=== PATIENT | female | born 1995 | race Two or more races ===

== ENCOUNTER 2020-04-22 16:14 | Emergency (ER) | payer OTHER ==
[~2020-04-22] VITALS: Ht 165.1 cm; Wt 90.9 kg
[2020-04-22 16:25] VITALS: BP 105/51
== END 2020-04-22 18:46 | disposition home or self-care (01) ==
LOC: ER 16:14
DX: S93.409A Sprain of unspecified ligament of unspecified ankle, initial encounter (principal); Z88.5 Allergy status to narcotic agent; Z59.0 Homelessness; X58.XXXA Exposure to other specified factors, initial encounter; Y93.89 Activity, other specified; Y92.89 Other specified places as the place of occurrence of the external cause; Y99.8 Other external cause status
CPT/HCPCS: 73610; 99283

== ENCOUNTER 2020-09-18 11:31 | Emergency (ER) | payer OTHER ==
[~2020-09-18] VITALS: Ht 165.1 cm; Wt 96.0 kg
[2020-09-18 11:57] VITALS: BP 121/78
== END 2020-09-18 12:57 | disposition home or self-care (01) ==
LOC: ER 11:32
DX: M25.531 Pain in right wrist (principal); Z88.8 Allergy status to other drugs, medicaments and biological substances; Z56.0 Unemployment, unspecified
CPT/HCPCS: 29125; 73110; 99283

== ENCOUNTER 2022-03-10 13:12 | Emergency (ER) | payer OTHER ==
[~2022-03-10] VITALS: Ht 165.1 cm; Wt 102.0 kg
[2022-03-10 13:35] VITALS: BP 127/83
== END 2022-03-10 15:09 | disposition home or self-care (01) ==
LOC: ER 13:12
DX: S82.62XA Displaced fracture of lateral malleolus of left fibula, initial encounter for closed fracture (principal); Z88.5 Allergy status to narcotic agent; Z56.0 Unemployment, unspecified; X50.9XXA Other and unspecified overexertion or strenuous movements or postures, initial encounter; Y93.89 Activity, other specified; Y92.89 Other specified places as the place of occurrence of the external cause; Y99.8 Other external cause status
CPT/HCPCS: 73610; 99283